=== PATIENT | male | born 1950 | race Caucasian/White ===

== ENCOUNTER → 2018-01-08 | Outpatient (CLI) | payer OTHER | LOC: FIMAGING 15:19 | PROVIDERS: ATTEND Neurological Surgery | DX: M41.86 Other forms of scoliosis, lumbar region (principal); M48.061 Spinal stenosis, lumbar region without neurogenic claudication; M53.86 Other specified dorsopathies, lumbar region; S33.120A Subluxation of L2/L3 lumbar vertebra, initial encounter; S33.140A Subluxation of L4/L5 lumbar vertebra, initial encounter ==